=== PATIENT | female | born 1980 | race Hispanic/Latino ===

== ENCOUNTER 2018-08-21 07:44 | Emergency (ER) | payer OTHER, SELFPAY ==
[2018-08-21 08:52] LABS: Bilirubin Negative (Negative); Blood, Urine Trace (Negative); Clarity CLOUDY (Clear); Glucose, Urine (Dipstick) Negative (Negative); Leukocyte Small (Negative); Nitrite Negative (Negative); Protein, Urine (Dipstick) Negative (Neg-Trace); Urobilinogen 0.2 mg/dL (0.2-1.0)
[2018-08-21 08:55] LABS: Pathc Cast-AUWi Flag 2.17 (0-2.49)
[2018-08-21 09:03] LABS: Pregnancy Test - Urine (BHCG) Negative (Negative)
[2018-08-21 09:04] LABS: Pregu Control Background? CLEAR/WHITE (CLR/WHITE); Pregu Control Bar Appear? YES (CONTROL BAR); Specific Gravity 1.002 (1.002-1.036)
[2018-08-21 09:18] LABS: Specific Gravity, Urine 1.002 (1.002-1.036)
[2018-08-21 09:23] LABS: Bacteria/HPF Rare-Few HPF (None Seen); Crystals/HPF 1+ SODIUM URATE HPF (Negative); Hyaline Casts/LPF NONE SEEN LPF (0-3 Hyaline); RBC/HPF 0-3 HPF (0-3); Squamous Epithelial 0-3 HPF (0-3); WBC/HPF 0-3 HPF (0-3)
[2018-08-24 00:08] LABS: Chlamydia by PCR Not Detected (NotDetected); GC by PCR Not Detected (NotDetected)
== END 2018-08-21 09:43 | disposition home or self-care (01) ==
LOC: ERS 07:44
DX: N89.8 Other specified noninflammatory disorders of vagina (principal)
CPT/HCPCS: 81003; 81015; 81025; 87480; 87491; 87510; 87591; 87660; 99283